=== PATIENT | male | born 1990 | race Two or more races ===

== ENCOUNTER 2018-06-29 09:14 | Emergency (ER) | payer MEDICAID, OTHER ==
[~2018-06-29] VITALS: Ht 175.3 cm; Wt 78.9 kg
[2018-06-29 09:37] VITALS: BP 140/78
== END 2018-06-29 09:46 | disposition left against medical advice (07) ==
LOC: ER 09:14
DX: M54.9 Dorsalgia, unspecified (principal); Z53.21 Procedure and treatment not carried out due to patient leaving prior to being seen by health care provider